=== PATIENT | female | born 1935 | race Caucasian/White ===

== ENCOUNTER 2020-11-09 01:29 | Observation (INO) ==
[2020-11-09] MEDS ORDERED: Ondansetron 4 MG/2 ML VIAL IVP ONE (01:56)
[2020-11-09] MEDS ORDERED: Isovue-370 500 ML BOTTLE IVP ONE (01:57)
[2020-11-09] MEDS ORDERED: 0.9 % Sodium Chloride 500 ML IVC ONE ×2 (01:59→08:26)
[2020-11-09 02:49] LABS: Basophils % 0.2 %; Eosinophils # 0.2 K/mcL (0.0-0.6); Eosinophils % 1.7 %; Hematocrit 37.5 % (35.3-44.9); Hemoglobin 11.2 g/dL (11.5-15.4); Immature Granulocytes % 0.6 % (0-4); Lymphocytes # 1.5 K/mcL (0.6-4.6); Lymphocytes % 11.6 %; Mean Corpuscular HGB Conc 29.9 g/dL (31.6-35.5); Mean Corpuscular Hemoglobin 26.5 pg (28.0-33.3); Mean Corpuscular Volume 88.9 fL (83.0-100.0); Mean Platelet Volume 10.2 fL (9.4-12.4); Monocytes # 1.1 K/mcL (0.0-1.3); Monocytes % 8.3 %; Neutrophils # 10.3 K/mcL (1.6-8.9); Platelet Count 238 K/mcL (140-400); Red Blood Count 4.22 M/mcL (3.82-4.97); Red Cell Distribution Width 17.2 % (11.5-14.5); Segmented Neutrophils % 77.6 %; White Blood Count 13.3 K/mcL (4.3-11.1)
[2020-11-09 03:15] LABS: Alanine Aminotransferase 12 Units/L (7-52); Albumin 4.2 g/dL (3.5-5.7); Albumin/Globulin Ratio 1.3 (1.1-2.2); Alkaline Phosphatase 83 Units/L (34-104); Aspartate Amino Transferase 17 Units/L (13-39); BUN/Creatinine Ratio 25 (6-26); Bilirubin,Indirect 0.3 mg/dL (0.0-1.0); Bilirubin,Total 0.3 mg/dL (0.3-1.0); Blood Urea Nitrogen 34 mg/dL (8-23); Calcium 8.7 mg/dL (8.6-10.3); Carbon Dioxide 27 mEq/L (23-29); Chloride 107 mEq/L (98-107); Globulin 3.2 g/dL (2.4-3.5); Glucose 154 mg/dL (70-105); Lipase 17 Units/L (11-82); Osmolality,Calculated 305 (280-300); Potassium 5.3 mEq/L (3.5-5.1); Sodium 142 mEq/L (136-145); Total Protein 7.4 g/dL (6.4-8.9); eGFR For African Americans 45 (> 60); eGFR For Non-African Americans 37 (> 60)
[2020-11-09 03:23] LABS: Troponin I < 0.03 ng/mL (< 0.04)
[2020-11-09 03:37] LABS: Adenovirus Not Detected (Not Detect); Coronavirus 229E Not Detected (Not Detect); Coronavirus HKU1 Not Detected (Not Detect); Coronavirus NL63 Not Detected (Not Detect); Coronavirus OC43 Not Detected (Not Detect); Human Metapneumovirus Not Detected (Not Detect); Human Rhinovirus/Enterovirus Not Detected (Not Detect); Influenza A Subtype 2009 H1 Not Detected (Not Detect); SARS-CoV-2 Not Detected (Not Detect)
[2020-11-09 03:38] LABS: Bordetella Pertussis Not Detected (Not Detect); Chlamydophila pneumoniae Not Detected (Not Detect); Influenza B Not Detected (Not Detect); Mycoplasma pneumoniae Not Detected (Not Detect); Parainfluenza Virus 1 Not Detected (Not Detect); Parainfluenza Virus 2 Not Detected (Not Detect); Parainfluenza Virus 3 Not Detected (Not Detect); Parainfluenza Virus 4 Not Detected (Not Detect); Respiratory Syncytial Virus Not Detected (Not Detect)
[2020-11-09 05:33] LABS: Bilirubin,Urine Negative (Negative); Blood,Urine Negative (Negative); Clarity,Urine Clear (Clear); Color,Urine Light-Yellow (Yellow); Glucose,Urine (UA) Normal (Normal); Ketones,Urine Negative (Negative); Leukocyte Esterase,Urine Negative (Negative); Nitrite,Urine Negative (Negative); Protein,Urine Negative (Neg-Trace); Specific Gravity,Urine 1.025 (1.010-1.025); Urobilinogen,Urine Normal (Normal)
[2020-11-09] MEDS ORDERED: Ondansetron 4 MG/2 ML VIAL IM ONE (08:06)
[2020-11-09] MEDS ORDERED: Melatonin 3 MG TABLET PO PRN (11:39)
[2020-11-09] MEDS ORDERED: Acetaminophen 325 MG TABLET PO PRN (11:39)
[2020-11-09] MEDS ORDERED: Naloxone 0.4 MG/ML INJ IVP PRN (11:39)
[2020-11-09] MEDS ORDERED: Ondansetron 4 MG/2 ML VIAL IVP PRN (11:39)
[2020-11-09] MEDS ORDERED: *HR* HYDROcodone/Acet 5/325 mg TABLET PO PRN (11:39)
[2020-11-09] MEDS ORDERED: *HR* OxyCODONE Immed Rel 5 MG TABLET PO PRN (11:39)
[2020-11-09] MEDS ORDERED: Insulin Human Regular 10 UNIT in 0.9 % Sodium Chloride 10 ML IV ONE (12:50)
[2020-11-09] MEDS ORDERED: *HR* Dextrose 50 % in Water (Syg) 50 ML SYRINGE IVP ONE (12:50)
[2020-11-09] MEDS ORDERED: Dextrose Gel 15 GM/37.5 ML TUBE PO PRN ×2 (12:52)
[2020-11-09] MEDS ORDERED: *HR* Dextrose 50 % in Water (Vial) 50 ML VIAL IVP PRN (12:52)
[2020-11-09] MEDS ORDERED: D5% in Water 1,000 ML IVC PRN (12:52)
[2020-11-09] MEDS: Calcium Gluconate 1gm/50mL 1 GM/50 ML BAG IVPB SCH ×2 (13:46→14:41)
[2020-11-09] MEDS: MetroNIDAZOLE 500 MG/100 ML 500 MG/100 ML BAG IVPB SCH ×2 (13:47→20:09)
[2020-11-09 14:21] LABS: Prothrombin Time 11.6 Seconds (9.4-12.1)
[2020-11-09 14:43] LABS: Magnesium 2.6 mg/dL (1.6-2.6); Phosphorous 3.3 mg/dL (2.7-4.5); Potassium 5.5 mEq/L (3.5-5.1)
[2020-11-09 14:58] LABS: Estimated Average Glucose 137 mg/dl; Hemoglobin A1C 6.4 %
[2020-11-09] MEDS ORDERED: SODIUM ZIRCONIUM CYCLOSILICATE 5 GM POWD.PACK PO ONE (15:54)
[2020-11-09] MEDS: Ringers Solution, Lactated 1,000 ML IVC SCH (17:25)
[2020-11-09] MEDS: Lactobacillus 1 EACH CAP.SPRINK PO SCH (20:08)
[2020-11-10] MEDS: MetroNIDAZOLE 500 MG/100 ML 500 MG/100 ML BAG IVPB SCH ×2 (03:48→13:00)
[2020-11-10] MEDS: Ringers Solution, Lactated 1,000 ML IVC SCH (04:13)
[2020-11-10 06:14] LABS: BUN/Creatinine Ratio 22 (6-26); Blood Urea Nitrogen 18 mg/dL (8-23); Calcium 8.2 mg/dL (8.6-10.3); Carbon Dioxide 26 mEq/L (23-29); Chloride 107 mEq/L (98-107); Glucose 104 mg/dL (70-105); Magnesium 2.3 mg/dL (1.6-2.6); Osmolality,Calculated 288 (280-300); Phosphorous 2.6 mg/dL (2.7-4.5); Potassium 4.8 mEq/L (3.5-5.1); Sodium 138 mEq/L (136-145); eGFR For African Americans > 60 (> 60); eGFR For Non-African Americans > 60 (> 60)
[2020-11-10 06:32] LABS: % Iron Saturation 12 % (15-50); Ferritin 10 ng/mL (10-120); Folate 19.3 ng/mL (3.0-16.0); Iron 46 mcg/dL (50-170); Transferrin 281 mg/dL (203-362)
[2020-11-10 07:02] LABS: Basophils % 0.3 %; Eosinophils # 0.2 K/mcL (0.0-0.6); Hemoglobin 9.2 g/dL (11.5-15.4); Immature Granulocytes % 0.3 % (0-4); Lymphocytes % 26.2 %; Mean Corpuscular HGB Conc 30.7 g/dL (31.6-35.5); Mean Corpuscular Hemoglobin 27.3 pg (28.0-33.3); Mean Platelet Volume 10.8 fL (9.4-12.4); Monocytes # 0.8 K/mcL (0.0-1.3); Monocytes % 10.3 %; Neutrophils # 4.7 K/mcL (1.6-8.9); Platelet Count 183 K/mcL (140-400); Red Blood Count 3.37 M/mcL (3.82-4.97); Red Cell Distribution Width 17.1 % (11.5-14.5); Segmented Neutrophils % 59.9 %; White Blood Count 7.8 K/mcL (4.3-11.1)
[2020-11-10] MEDS ORDERED: Multivit/Ca/Min/Fe/FA 1 TAB TABLET PO SCH (09:00)
[2020-11-10] MEDS: Lactobacillus 1 EACH CAP.SPRINK PO SCH (09:02)
[2020-11-10] MEDS ORDERED: *HR* OxyCODONE/APAP 10/325 TABLET PO PRN (10:23)
[2020-11-10] MEDS ORDERED: *HR* FentaNYL PATCH 25 MCG PATCH TD SCH (10:30)
[2020-11-10 10:50] VITALS: O2SAT 94
[2020-11-10 15:18] VITALS: PULSE 83; TEMP 99.2
[2020-11-10 16:08] VITALS: BP 147/54
[2020-11-10] MEDS ORDERED: Pregabalin 75 MG CAPSULE PO SCH (21:00)
[2020-11-10] MEDS ORDERED: Clotrimazole/Betameth Dip CRM 45 APPL/45 GM TUBE TP SCH (21:00)
[2020-11-11] MEDS ORDERED: lisinopriL 10 MG TABLET PO SCH (09:00)
== END 2020-11-10 17:21 | disposition home or self-care (01) ==
LOC: EMEROOARM 01:29 → CDU 01:29 → SUATTDRO 11:21 → CDU 12:31
PROVIDERS: ADMIT Internal Medicine; ATTEND Internal Medicine